=== PATIENT | female | born 1995 | race Caucasian/White ===

== ENCOUNTER 2019-04-15 16:26 | Emergency (ER) | payer BC ==
[~2019-04-15] VITALS: Ht 170.2 cm; Wt 67.1 kg
[2019-04-15 16:37] VITALS: BP 116/76; Ht 170.2 cm; Wt 67.1 kg
== END 2019-04-15 17:59 | disposition home or self-care (01) ==
LOC: ED 16:26
DX: T36.1X5A Adverse effect of cephalosporins and other beta-lactam antibiotics, initial encounter (principal); T37.8X5A Adverse effect of other specified systemic anti-infectives and antiparasitics, initial encounter; Z88.0 Allergy status to penicillin; Y92.89 Other specified places as the place of occurrence of the external cause